=== PATIENT | female | born 1970 | race African-American/Black ===

== ENCOUNTER 2020-06-07 14:59 | Emergency (ER) | payer OTHER ==
[2020-06-07 15:21] VITALS: BMI 29.0
--- NOTE | 2020-06-07 15:38 | PDOC ---
History of Present Illness - General Chief Complaint: Wound Stated Complaint: CELLULITIS Time Seen by Provider: 06/07/20 15:38 - History of Present Illness Initial Comments: 06/07/20 16:22 50F with cerebral palsy, severe MR/DD, seizure d/o, LLE cellulitis p/w LLE swelling. A bobbin disker is at bedside but unable to provide much hx, other than it was noted by care team that LLE swelling had increased recently. She's chronically immobilized. The pt is unable to provide history. PMH: as in HPI SH: see below Meds: see med list Allergies: vancomycin PCP: ROS: unable to assess due to patient's condition PE GENERAL: Awake, alert, and not oriented ; no acute distress HEAD: No signs of trauma, normocephalic, atraumatic EYES: PERRLA, EOMI, sclera anicteric, conjunctiva clear ENT: Auricles normal inspection, hearing grossly normal, nares patent, moist mucosa, oropharynx clear without exudates. NECK: Normal ROM, supple, no LAD, JVD, or masses HEART: Regular rate and rhythm, normal S1/S2, no murmurs, rubs or gallops, peripheral pulses normal and equal bilaterally. LUNGS: No distress, clear to auscultation bilaterally ABDOMEN: Soft, nontender. No guarding, no rebound. No masses EXTREMITIES: LLE diffuse nonpitting edema from the knee down, possible erythema but poorly visualized, warmth; black necrotic lesion at lateral left 1st toe. NEUROLOGICAL: CNII-XII grossly intact. Normal speech, no focal sensorimotor deficits SKIN: Warm, Dry, normal turgor, no rashes or lesions noted Assessment and Plan Giorgio Flood, PGY1 Emergency Medicine Past History - Medical History Allergies/Adverse Reactions: Allergies Allergy/AdvReac Type Severity Reaction Status Date / Time vancomycin Allergy Verified 06/07/20 15:21 Home Medications: Ambulatory Orders Citalopram Hydrobromide [Citalopram HBr] 20 mg PO HS 09/19/19 Clobazam 30 mg PO HS 09/19/19 Docusate Sodium [Docusate 100 mg] 300 mg PO DAILY 09/19/19 Folic Acid 1 mg PO DAILY 09/19/19 Lamotrigine [Lamictal] 200 mg PO BID 09/19/19 Multivit-Minerals [Certavite-Antioxidant Liquid] 9 mg PO DAILY 09/19/19 Quetiapine Fumarate [Seroquel -] 200 mg PO HS 09/19/19 Spironolactone 50 mg PO DAILY 09/19/19 Topiramate [Topamax] 200 mg PO BID 09/19/19 levETIRAcetam [Keppra -] 1,000 mg PO BID 09/19/19 Furosemide 40 mg PO DAILY 06/07/20 Penicillin V Potassium [Pen Vee K -] 500 mg PO QID 06/07/20 Spironolactone 25 mg PO HS 06/07/20 CVA: Yes (2006) COPD: No Seizures: Yes - Reproductive History Is Patient Now?: No - Psycho-Social/Smoking History Smoking History: Unknown if ever smoked - Substance Abuse Hx (Audit-C & DAST Scrn) In the last yr the pt used illegal drug/Rx for NonMed reason: No Score: Yes response is considered Positive: 0 Screen Result (Positive result requires Nsg. DAST-10): Negative *Physical Exam - Vital Signs Last Vital Signs Temp Pulse Resp BP Pulse Ox 98.5 F 94 H 16 150/79 100 06/07/20 15:19 06/07/20 15:19 06/07/20 15:19 06/07/20 15:19 06/07/20 15:19 ED Treatment Course - LABORATORY CBC & Chemistry Diagram: 06/07/20 16:47 06/07/20 16:47 Medical Decision Making - Medical Decision Making 06/07/20 16:32 50F with cerebral palsy, severe MR/DD, seizure d/o, LLE cellulitis p/w LLE swelling, nonpitting. On exam, left LE was more swollen and warm than the right LE. DDx: LLE cellulitis vs necrotizing fasciitis, DVT, compartment syndrome. 06/07/20 18:29 Labs notable for elevated CRP, CMP and CBC wnl. 06/07/20 18:52 Pending LE doppler US. Signed out to night team. Discharge - Discharge Information Problems reviewed: Yes Clinical Impression/Diagnosis: Left leg swelling - Follow up/Referral - Patient Discharge Instructions - Post Discharge Activity
--- NOTE | 2020-06-07 17:12 | PDOC ---
Attending Attestation - Resident Resident Name: Giorgio Flood - ED Attending Attestation I have performed the following: I have examined & evaluated the patient, The case was reviewed & discussed with the resident, I agree w/resident's findings & plan, Exceptions are as noted - HPI HPI: 06/07/20 50 yo female BIBA from [facility] for evaluation of LLE swelling . She has no fever. Reviewing the pt's chart she has been on po antibiotics since May 23. PMH Significant for CP, severe MR, CVA 8007, seizure disorder, left lower extremity cellulitis, left ankle fracture 1999, hydrocephalus and organic brain syndrome 06/07/20 17:14 06/07/20 17:17 06/07/20 17:19 - Physicial Exam PE: 06/07/20 17:19 50 yo female resting on gurney on no distress ,sent for evaluation of LLE head ncat lungs no wheezing,no crackles cvs [id number] abdomen nontender extremities mild diffuse edema but the LLE is more swollen that the right leg,there is a mild erythema skin On the lateral surface of her left big toe there is a 1 cm black lesion with very discrete borders ,no erythema, nontender neuro nonverbal at baseline, chronic left sided weakness 06/07/20 17:31 - Medical Decision Making 06/07/20 19:54 Duplex Doppler NEGATIVE for dvt in left leg labs reviewed 06/07/20 20:25 pt has no leukocytosis and no fever d/c back to [place] Discharge - Discharge Information Problems reviewed: Yes Clinical Impression/Diagnosis: Left leg swelling Condition: Stable Disposition: [facility] FAC[facility] - Follow up/Referral - Patient Discharge Instructions Additional Instructions: Follow up with Betsy's primary care doctor in the next 3 days. Continue home medications as prescribed. Return to the Emergency Department if Betsy experiences new or worsening s ymptoms. - Post Discharge Activity
[2020-06-07 17:52] LABS: BASO % 0.5 % (0-2.0); EOS % 3.2 % (0-4.5); HEMATOCRIT 40.9 % (32.4-45.2); HEMOGLOBIN 13.2 GM/dL (10.7-15.3); LYMPH % 24.9 % (8-40); MCH 27.4 pg (25.7-33.7); MCHC 32.2 g/dl (32.0-36.0); MEAN CELL VOLUME 85.2 fl (80-96); MONO % 14.2 % (3.8-10.2); NEUT % 57.2 % (42.8-82.8); PLATELET COUNT 196 K/MM3 (134-434); RDW 14.2 % (11.6-15.6); WHITE BLOOD COUNT 6.2 K/mm3 (4.0-10.0)
[2020-06-07 18:03] LABS: ALBUMIN 3.5 g/dl (3.4-5.0); BILIRUBIN,TOTAL 0.1 mg/dL (0.2-1); BLOOD UREA NITROGEN 19.8 mg/dL (7-18); CALCIUM 9.4 mg/dL (8.5-10.1); CREATININE 1.2 mg/dL (0.55-1.3); POTASSIUM 3.9 mmol/L (3.5-5.1); TOT PROT 8.7 g/dl (6.4-8.2)
[2020-06-07 19:15] LABS: INR 1.06 (0.83-1.09); PROTHROMBIN TIME (PATIENT) 12.5 SEC (9.7-13.0)
[2020-06-07 19:18] LABS: ACTIVATED PTT 29.3 SECONDS (25.2-36.5)
--- NOTE | 2020-06-07 20:05 | PDOC ---
*Physical Exam - Vital Signs Last Vital Signs Temp Pulse Resp BP Pulse Ox 98.5 F 94 H 16 150/79 100 06/07/20 15:19 06/07/20 15:19 06/07/20 15:19 06/07/20 15:19 06/07/20 15:19 ED Treatment Course - LABORATORY CBC & Chemistry Diagram: 06/07/20 16:47 06/07/20 16:47 - ADDITIONAL ORDERS Additional order review: Laboratory Results 06/07/20 06/07/20 06/07/20 18:09 16:47 16:47 PT with INR 12.50 INR 1.06 PTT (Actin FS) 29.3 Sodium 143 Potassium 3.9 Chloride 111 H Carbon Dioxide 25 Anion Gap 7 L BUN 19.8 H Creatinine 1.2 Est GFR (CKD-EPI)AfAm 61.03 Est GFR (CKD-EPI)NonAf 52.65 Random Glucose 119 H Lactic Acid 1.0 Calcium 9.4 Total Bilirubin 0.1 L AST 11 L ALT 24 Alkaline Phosphatase 93 Creatine Kinase 94 C-Reactive Protein 3.2 H Total Protein 8.7 H Albumin 3.5 06/07/20 16:47 RBC 4.80 MCV 85.2 MCHC 32.2 RDW 14.2 MPV 8.0 Neutrophils % 57.2 Lymphocytes % 24.9 Monocytes % 14.2 H Eosinophils % 3.2 Basophils % 0.5 Medical Decision Making - Medical Decision Making 06/07/20 20:05 sign out from Day team US report w/o DVT Afebrile; labs reviewed w/o elevation of WBC Message left for Dr. Cedeno (PCP) to callback Plan to discharge back to [place] 06/07/20 20:25 2nd call placed to Dr. Cedeno, no answer 06/07/20 20:54 3rd call placed to Dr. Cedeno with no answer Patient has been medically cleared to return to [facility] to [place] Discharge - Discharge Information Problems reviewed: Yes Clinical Impression/Diagnosis: Left leg swelling Condition: Stable Disposition: SNF FACILITY - Admission No - Follow up/Referral - Patient Discharge Instructions Additional Instructions: Follow up with Betsy's primary care doctor in the next 3 days. Continue home medications as prescribed. Return to the Emergency Department if Betsy experiences new or worsening sym ptoms. - Post Discharge Activity
[2020-06-07 23:25] VITALS: BP 143/68; PULSE 90; TEMP 98.2
== END 2020-06-07 22:07 ==
LOC: JER 14:59
DX: L03.116 Cellulitis of left lower limb (principal)
CPT/HCPCS: 36415; 80053; 82550; 83605; 85025; 85610; 85730; 86140; 93971-TC; 99284-25

== ENCOUNTER 2023-12-15 13:40 | Inpatient (IN) | payer OTHER ==
[2023-12-15 15:39] LABS: VENOUS BASE EXCESS -4.8 mmol/L (-2-2); VENOUS O2 SATURATION 78.3 % (70-80); VENOUS PCO2 42.5 mmHg (38-52); VENOUS PH 7.315 (7.310-7.410)
[2023-12-15 15:41] LABS: BASO % 0.2 % (0-2.0); EOS % 0.1 % (0-4.5); HEMATOCRIT 39.5 % (32.4-45.2); HEMOGLOBIN 12.6 GM/dL (10.7-15.3); LYMPH % 4.3 % (8-40); MCH 26.5 pg (25.7-33.7); MCHC 31.9 g/dl (32.0-36.0); MEAN CELL VOLUME 83.2 fl (80-96); MEAN PLT VOLUME 6.9 fl (7.5-11.1); MONO % 7.7 % (3.8-10.2); NEUT % 87.7 % (42.8-82.8); PLATELET COUNT 171 10^3/uL (134-434); RBC 4.75 M/mm3 (3.60-5.2); RDW 13.6 % (11.6-15.6)
[2023-12-15 15:50] LABS: INR 1.18 (0.83-1.09); PROTHROMBIN TIME (PATIENT) 13.7 SEC (9.7-13.0)
[2023-12-15 15:53] LABS: ACTIVATED PTT 29.9 SECONDS (25.2-36.5)
[2023-12-15 16:00] LABS: POTASSIUM 3.6 mmol/L (3.5-5.1)
[2023-12-15 16:02] LABS: ALBUMIN 3.1 g/dl (3.4-5.0); BLOOD UREA NITROGEN 20.5 mg/dL (7-18); CALCIUM 8.8 mg/dL (8.5-10.1)
[2023-12-15 16:06] LABS: CREATININE 1.5 mg/dL (0.55-1.3)
[2023-12-15 16:07] LABS: BILIRUBIN,TOTAL 0.2 mg/dL (0.2-1); TOT PROT 7.2 g/dl (6.4-8.2)
[2023-12-15] MEDS ORDERED: ACETAMINOPHEN INJECTION 100 ML IVPB ONE (16:20)
[2023-12-15 16:23] LABS: EPI CELLS >36 /uL (0-25.1); HYALINE CASTS 1 /uL (0-3.1); PH,URINE 7.5 (5.0-8.0); URINE APPEARANCE CLOUDY; URINE BACTERIA >9,000 /uL (0-1359); URINE BILIRUBIN NEGATIVE (NEGATIVE); URINE COLOR YELLOW; URINE GLUCOSE (UA) NEGATIVE (NEGATIVE); URINE KETONE TRACE (NEGATIVE); URINE LEUK ESTERASE 3+ (NEGATIVE); URINE NITRITE POSITIVE (NEGATIVE); URINE PROTEIN TRACE (NEGATIVE); URINE RBC 325 /uL (0-23.9); URINE WBC 1973 /uL (0-25.8)
[2023-12-15] MEDS: ACETAMINOPHEN 1000 MG/100 ML BAG IVPB ONE (16:29)
[2023-12-15] MEDS: LACTATED RINGERS SOLUTION 1000 ML INFUS.BAG IV ONE (16:29)
[2023-12-15] MEDS ORDERED: CEFTRIAXONE 1 GM/50 ML BAG ONE (17:36)
[2023-12-15] MEDS: LACTATED RINGERS SOLUTION 1,000 ML/1,000 ML INFUS.BAG IV SCH (17:38)
[2023-12-15] MEDS: CEFTRIAXONE 1 GM in DEXTROSE 5%-WATER - 50 ML IVPB ONE (17:39)
[2023-12-15] MEDS ORDERED: cloBAZam 10 MG TABLET ONE (20:19)
[2023-12-15] MEDS ORDERED: TOPIRAMATE 100 MG TABLET ONE ×2 (20:19→20:23)
[2023-12-15] MEDS ORDERED: levETIRAcetam 500 MG TABLET (FP) PO ONE (20:19)
[2023-12-15] MEDS ORDERED: lamoTRIgine 100 MG TABLET ONE (20:20)
[2023-12-15] MEDS ORDERED: ATORVASTATIN CA 10 MG TABLET (FP) ONE (20:20)
[2023-12-15] MEDS ORDERED: SPIRONOLACTONE 25 MG TABLET ONE (20:21)
[2023-12-15] MEDS ORDERED: HEPARIN NA (PORCINE) 5,000 UNITS/ML 1ML VIAL ONE (20:21)
[2023-12-15] MEDS ORDERED: CITALOPRAM HYDROBROMIDE 10 MG TABLET ONE (20:21)
[2023-12-15] MEDS: SPIRONOLACTONE 25 MG TABLET PO SCH (21:45)
[2023-12-15] MEDS: HEPARIN NA (PORCINE) 5,000 UNITS/ML 1ML VIAL SQ SCH (21:45)
[2023-12-15] MEDS: levETIRAcetam 500 MG TABLET (FP) PO SCH (21:45)
[2023-12-15] MEDS: ATORVASTATIN CA 10 MG TABLET (FP) PO SCH (21:45)
[2023-12-15] MEDS: cloBAZam 10 MG TABLET PO SCH (21:45)
[2023-12-15] MEDS: CITALOPRAM HYDROBROMIDE 20 MG TABLET PO SCH (21:45)
[2023-12-15] MEDS: TOPIRAMATE 100 MG TABLET PO SCH (21:46)
[2023-12-15] MEDS: CEFTRIAXONE 1,000 MG in DEXTROSE 5%-WATER - 50 ML IVPB ONE (21:46)
[2023-12-15] MEDS ORDERED: PATIENT'S OWN MEDICATION (NON-FORMULARY) (Topiramate [Topamax] 50 MG Tablet) PO SCH (22:00)
[2023-12-16 07:55] LABS: BASO % 0.2 % (0-2.0); HEMATOCRIT 34.9 % (32.4-45.2); HEMOGLOBIN 11.2 GM/dL (10.7-15.3); LYMPH % 4.7 % (8-40); MCH 26.7 pg (25.7-33.7); MEAN CELL VOLUME 83.6 fl (80-96); MEAN PLT VOLUME 7.7 fl (7.5-11.1); MONO % 8.8 % (3.8-10.2); NEUT % 86.3 % (42.8-82.8); PLATELET COUNT 135 10^3/uL (134-434); RBC 4.18 M/mm3 (3.60-5.2); RDW 13.7 % (11.6-15.6); WHITE BLOOD COUNT 19.5 K/mm3 (4.0-10.0)
[2023-12-16 08:17] LABS: POTASSIUM 3.2 mmol/L (3.5-5.1)
[2023-12-16 08:24] LABS: CALCIUM 8.4 mg/dL (8.5-10.1)
[2023-12-16 08:28] LABS: CREATININE 1.7 mg/dL (0.55-1.3)
[2023-12-16] MEDS ORDERED: ACETAMINOPHEN 500 MG TABLET (FP) ONE (09:07)
[2023-12-16] MEDS: ACETAMINOPHEN 500 MG TABLET (FP) PO PRN (09:10)
[2023-12-16] MEDS ORDERED: MULTIVIT-MINERALS ORAL LIQUID PO SCH (10:00)
[2023-12-16] MEDS: FOLIC ACID 1 MG TABLET (FP) PO SCH (10:17)
[2023-12-16] MEDS: MULTIVITAMINS (DAILY MVI) TABLET (FP) PO SCH (10:17)
[2023-12-16] MEDS: DOCUSATE SODIUM 100 MG CAPSULE (FP) PO SCH (10:18)
[2023-12-16] MEDS: LORATADINE 10 MG TABLET PO SCH (10:18)
[2023-12-16] MEDS ORDERED: PIPERACILLIN/TAZOB 3.375 GM 3.375 GM in DEXTROSE 5%-WATER - 50 ML IVPB SCH (10:30)
[2023-12-16] MEDS: POTASSIUM CHLORIDE TABS 20 MEQ TABLET.ER (FP) PO ONE (11:19)
[2023-12-16] MEDS: PIPERACILLIN/TAZOB 4.5 GM 4.5 GM in DEXTROSE 5%-WATER 100 ML IVPB ONE (11:20)
[2023-12-16] MEDS: CEFTRIAXONE 1 GM in DEXTROSE 5%-WATER - 50 ML IVPB SCH (11:22)
[2023-12-16] MEDS ORDERED: KCL 10 MEQ IVPB 10 MEQ/100 ML INFUS.BAG IVPB SCH (13:15)
[2023-12-16] MEDS: POTASSIUM CHLORIDE ORAL LIQUID 20 MEQ/15 ML PO SCH (13:53)
[2023-12-16] MEDS: PIPERACILLIN/TAZOB 3.375 GM 3.375 GM in DEXTROSE 5%-WATER - 50 ML IVPB SCH (16:10)
[2023-12-16] MEDS: lamoTRIgine 100 MG TABLET PO SCH (23:08)
[2023-12-17] MEDS: ACETAMINOPHEN 1000 MG/100 ML BAG IVPB PRN (06:52)
[2023-12-17 09:30] LABS: HEMATOCRIT 35.6 % (32.4-45.2); MCHC 30.9 g/dl (32.0-36.0); MEAN PLT VOLUME 7.5 fl (7.5-11.1); PLATELET COUNT 131 10^3/uL (134-434); RBC 4.24 M/mm3 (3.60-5.2); RDW 13.6 % (11.6-15.6); WHITE BLOOD COUNT 15.3 K/mm3 (4.0-10.0)
[2023-12-17 09:56] LABS: POTASSIUM 4.1 mmol/L (3.5-5.1)
[2023-12-17 09:59] LABS: BLOOD UREA NITROGEN 20.4 mg/dL (7-18); CALCIUM 9.4 mg/dL (8.5-10.1)
[2023-12-17 10:01] LABS: ALBUMIN 2.6 g/dl (3.4-5.0)
[2023-12-17 10:04] LABS: BILIRUBIN,TOTAL 0.5 mg/dL (0.2-1); CREATININE 1.6 mg/dL (0.55-1.3); TOT PROT 6.6 g/dl (6.4-8.2)
[2023-12-17 15:47] VITALS: BMI 35.9
[2023-12-17] MEDS: PIPERACILLIN/TAZOB 3.375 GM 3.375 GM in DEXTROSE 5%-WATER - 50 ML IVPB SCH (17:23)
[2023-12-17] MEDS: cloBAZam 10 MG TABLET PO SCH (23:08)
[2023-12-17] MEDS: SPIRONOLACTONE 25 MG TABLET PO SCH (23:09)
[2023-12-18] MEDS: SPIRONOLACTONE 25 MG TABLET PO SCH (07:37)
[2023-12-18] MEDS ORDERED: PIPERACILLIN/TAZOBACTAM 3.375 GM VIAL IVPB ONE (16:53)
[2023-12-18] MEDS: ACETAMINOPHEN 1000 MG/100 ML BAG IVPB PRN (18:05)
[2023-12-19 09:10] LABS: HEMATOCRIT 35.7 % (32.4-45.2); HEMOGLOBIN 11.1 GM/dL (10.7-15.3); MCH 26.1 pg (25.7-33.7); MCHC 31.2 g/dl (32.0-36.0); MEAN CELL VOLUME 83.6 fl (80-96); MEAN PLT VOLUME 7.3 fl (7.5-11.1); PLATELET COUNT 129 10^3/uL (134-434); RBC 4.27 M/mm3 (3.60-5.2); RDW 14.1 % (11.6-15.6); WHITE BLOOD COUNT 9.1 K/mm3 (4.0-10.0)
[2023-12-19 09:31] LABS: POTASSIUM 3.8 mmol/L (3.5-5.1)
[2023-12-19 09:35] LABS: CALCIUM 8.8 mg/dL (8.5-10.1)
[2023-12-19 09:36] LABS: ALBUMIN 2.3 g/dl (3.4-5.0); BLOOD UREA NITROGEN 18.2 mg/dL (7-18)
[2023-12-19 09:39] LABS: CREATININE 1.5 mg/dL (0.55-1.3)
[2023-12-19 09:41] LABS: BILIRUBIN,TOTAL 0.4 mg/dL (0.2-1); TOT PROT 6.7 g/dl (6.4-8.2)
[2023-12-19] MEDS ORDERED: PIPERACILLIN/TAZOBACTAM 3.375 GM VIAL IVPB ONE (10:37)
[2023-12-19] MEDS ORDERED: CEFTRIAXONE 1 GM in DEXTROSE 5%-WATER - 50 ML IVPB SCH (11:15)
[2023-12-19] MEDS: SODIUM CHLORIDE 1,000 ML IV SCH (13:57)
[2023-12-19] MEDS: ACETAMINOPHEN 1000 MG/100 ML BAG IVPB ONE (19:56)
[2023-12-20 10:00] LABS: HEMATOCRIT 37.2 % (32.4-45.2); MCH 26.8 pg (25.7-33.7); MCHC 32.3 g/dl (32.0-36.0); MEAN PLT VOLUME 7.9 fl (7.5-11.1); PLATELET COUNT 153 10^3/uL (134-434); RBC 4.49 M/mm3 (3.60-5.2); RDW 14.1 % (11.6-15.6); WHITE BLOOD COUNT 10.4 K/mm3 (4.0-10.0)
[2023-12-20 10:16] LABS: POTASSIUM 3.8 mmol/L (3.5-5.1)
[2023-12-20 10:52] LABS: ALBUMIN 2.6 g/dl (3.4-5.0); CALCIUM 9.2 mg/dL (8.5-10.1); CREATININE 1.5 mg/dL (0.55-1.3)
[2023-12-20 10:53] LABS: BLOOD UREA NITROGEN 17.5 mg/dL (7-18)
[2023-12-20 10:54] LABS: BILIRUBIN,TOTAL 0.2 mg/dL (0.2-1); TOT PROT 7.1 g/dl (6.4-8.2)
[2023-12-20] MEDS: CEFTRIAXONE 1 GM in DEXTROSE 5%-WATER - 50 ML IVPB ONE (12:43)
[2023-12-20] MEDS ORDERED: CEFTRIAXONE 1 GM in DEXTROSE 5%-WATER - 50 ML IVPB SCH (16:00)
[2023-12-21 10:05] LABS: HEMATOCRIT 38.6 % (32.4-45.2); HEMOGLOBIN 12.2 GM/dL (10.7-15.3); MCH 26.2 pg (25.7-33.7); MCHC 31.6 g/dl (32.0-36.0); MEAN CELL VOLUME 83.1 fl (80-96); MEAN PLT VOLUME 7.4 fl (7.5-11.1); PLATELET COUNT 168 10^3/uL (134-434); RBC 4.65 M/mm3 (3.60-5.2); RDW 13.9 % (11.6-15.6)
[2023-12-21 10:23] LABS: POTASSIUM 4.1 mmol/L (3.5-5.1)
[2023-12-21 10:26] LABS: CALCIUM 9.1 mg/dL (8.5-10.1)
[2023-12-21 10:27] LABS: ALBUMIN 2.6 g/dl (3.4-5.0); BLOOD UREA NITROGEN 16.3 mg/dL (7-18)
[2023-12-21 10:30] LABS: CREATININE 1.4 mg/dL (0.55-1.3)
[2023-12-21 10:31] LABS: BILIRUBIN,TOTAL 0.4 mg/dL (0.2-1)
[2023-12-21 10:32] LABS: TOT PROT 7.6 g/dl (6.4-8.2)
[2023-12-21] MEDS: CEFTRIAXONE 1 GM in DEXTROSE 5%-WATER - 50 ML IVPB SCH (12:50)
[2023-12-22] MEDS ORDERED: PIPERACILLIN/TAZOB 3.375 GM 3.375 GM in DEXTROSE 5%-WATER - 50 ML IVPB SCH (19:30)
[2023-12-22 20:03] LABS: HEMATOCRIT 42.1 % (32.4-45.2); HEMOGLOBIN 13.1 GM/dL (10.7-15.3); MCH 25.7 pg (25.7-33.7); MEAN CELL VOLUME 82.7 fl (80-96); MEAN PLT VOLUME 7.6 fl (7.5-11.1); PLATELET COUNT 231 10^3/uL (134-434); RBC 5.09 M/mm3 (3.60-5.2); RDW 13.5 % (11.6-15.6)
[2023-12-22 20:04] LABS: ADD RBC MORPHOLOGY YES
[2023-12-22 20:53] LABS: ALBUMIN 2.9 g/dl (3.4-5.0); BILIRUBIN,TOTAL 0.2 mg/dL (0.2-1); BLOOD UREA NITROGEN 19.9 mg/dL (7-18); CALCIUM 9.3 mg/dL (8.5-10.1); CREATININE 1.6 mg/dL (0.55-1.3); POTASSIUM 4.4 mmol/L (3.5-5.1); TOT PROT 8.4 g/dl (6.4-8.2)
[2023-12-22] MEDS: PIPERACILLIN/TAZOB 3.375 GM 3.375 GM in DEXTROSE 5%-WATER - 50 ML IVPB SCH ×2 (20:59→21:11)
[2023-12-22 21:30] LABS: ANISOCYTOSIS 0; MACROCYTOSIS 0
[2023-12-22 21:34] LABS: WHITE BLOOD COUNT 17.2 K/mm3 (4.0-10.0)
[2023-12-22] MEDS: ACETAMINOPHEN 325 MG TABLET (FP) PO PRN (22:00)
[2023-12-23 08:33] LABS: BASO % 0.6 % (0-2.0); EOS % 1.4 % (0-4.5); HEMATOCRIT 36.6 % (32.4-45.2); HEMOGLOBIN 11.4 GM/dL (10.7-15.3); LYMPH % 11.4 % (8-40); MCH 25.8 pg (25.7-33.7); MCHC 31.2 g/dl (32.0-36.0); MEAN CELL VOLUME 82.6 fl (80-96); MEAN PLT VOLUME 7.3 fl (7.5-11.1); MONO % 7.2 % (3.8-10.2); NEUT % 79.4 % (42.8-82.8); PLATELET COUNT 244 10^3/uL (134-434); RBC 4.44 M/mm3 (3.60-5.2); RDW 13.5 % (11.6-15.6)
[2023-12-23 08:41] LABS: POTASSIUM 3.9 mmol/L (3.5-5.1)
[2023-12-23 08:44] LABS: CALCIUM 9.3 mg/dL (8.5-10.1)
[2023-12-23 08:45] LABS: BLOOD UREA NITROGEN 20.1 mg/dL (7-18)
[2023-12-23 08:46] LABS: CREATININE 1.6 mg/dL (0.55-1.3)
[2023-12-24 09:02] LABS: HEMATOCRIT 35.4 % (32.4-45.2); MCH 25.9 pg (25.7-33.7); MCHC 31.2 g/dl (32.0-36.0); MEAN PLT VOLUME 7.1 fl (7.5-11.1); PLATELET COUNT 249 10^3/uL (134-434); RBC 4.26 M/mm3 (3.60-5.2); RDW 13.7 % (11.6-15.6); WHITE BLOOD COUNT 14.6 K/mm3 (4.0-10.0)
[2023-12-24 09:37] LABS: BLOOD UREA NITROGEN 19.4 mg/dL (7-18); CALCIUM 9.1 mg/dL (8.5-10.1); CREATININE 1.3 mg/dL (0.55-1.3)
[2023-12-24 10:20] LABS: ANISOCYTOSIS 0; HELMET CELLS 0; HOWELL-JOLLY BODIES 0; MACROCYTOSIS 0; OVALOCYTE 0; ROULEAU 0; SICKELED CELLS 0; TARGET CELLS 0; TEAR DROP CELLS 0; TOXIC GRANULATION 0
[2023-12-24] MEDS: CEFTRIAXONE 1 GM in DEXTROSE 5%-WATER - 50 ML IVPB SCH (14:54)
[2023-12-25 10:03] LABS: HEMATOCRIT 35.1 % (32.4-45.2); HEMOGLOBIN 11.1 GM/dL (10.7-15.3); MCH 26.3 pg (25.7-33.7); MCHC 31.7 g/dl (32.0-36.0); MEAN CELL VOLUME 82.9 fl (80-96); MEAN PLT VOLUME 7.2 fl (7.5-11.1); PLATELET COUNT 300 10^3/uL (134-434); RBC 4.24 M/mm3 (3.60-5.2); RDW 13.9 % (11.6-15.6); WHITE BLOOD COUNT 11.3 K/mm3 (4.0-10.0)
[2023-12-25 10:05] LABS: POTASSIUM 4.1 mmol/L (3.5-5.1)
[2023-12-25 10:07] LABS: BLOOD UREA NITROGEN 17.7 mg/dL (7-18); CALCIUM 9.5 mg/dL (8.5-10.1)
[2023-12-26 08:47] LABS: HEMATOCRIT 35.5 % (32.4-45.2); HEMOGLOBIN 11.6 GM/dL (10.7-15.3); MCH 27.1 pg (25.7-33.7); MCHC 32.6 g/dl (32.0-36.0); MEAN CELL VOLUME 83.2 fl (80-96); MEAN PLT VOLUME 6.9 fl (7.5-11.1); PLATELET COUNT 330 10^3/uL (134-434); RBC 4.27 M/mm3 (3.60-5.2); WHITE BLOOD COUNT 9.9 K/mm3 (4.0-10.0)
[2023-12-26] MEDS: CEFUROXIME AXETIL 500 MG TABLET PO SCH ×2 (14:47→22:09)
[2023-12-26] MEDS ORDERED: PROPOFOL 20 ML ONE (17:12)
[2023-12-26] MEDS ORDERED: FENTANYL CITRATE/PF 50 MCG/ML VIAL ONE (17:12)
[2023-12-26] MEDS ORDERED: ACETAMINOPHEN INJECTION 100 ML IVPB ONE (17:12)
[2023-12-26 17:13] LABS: CHLORIDE 111 mmol/L (98-107); POTASSIUM 4.1 mmol/L (3.5-5.1); SODIUM 143 mmol/L (136-145)
[2023-12-26] MEDS ORDERED: MIDAZOLAM HCL 2 MG/2 ML SINGLE DOSE VIAL ONE (17:13)
[2023-12-26 17:15] LABS: CALCIUM 9.7 mg/dL (8.5-10.1)
[2023-12-26 17:16] LABS: ALBUMIN 2.9 g/dl (3.4-5.0); ANION GAP 5 mmol/L (4-13); BLOOD UREA NITROGEN 18.5 mg/dL (7-18); CO2 26 mmol/L (21-32); GLUCOSE,RANDOM 91 mg/dL (74-106)
[2023-12-26 17:19] LABS: SGOT/AST 16 U/L (15-37); SGPT/ALT 29 U/L (13-61)
[2023-12-26 17:20] LABS: TOT PROT 8.9 g/dl (6.4-8.2)
[2023-12-26 17:21] LABS: BILIRUBIN,TOTAL 0.2 mg/dL (0.2-1)
[2023-12-26] MEDS ORDERED: DEXAMETHASONE SOD PHOSPHATE 4 MG/1 ML VIAL ONE (17:21)
[2023-12-26] MEDS ORDERED: ONDANSETRON 4 MG/2 ML VIAL ONE (17:21)
[2023-12-26 17:22] LABS: ALK PHOS 72 U/L (45-117)
[2023-12-26] MEDS: ceFAZolin SODIUM 1 GM VIAL IVPB ONE (17:30)
[2023-12-26] MEDS ORDERED: KETOROLAC TROMETHAMINE 30 MG/1 ML VIAL ONE (17:31)
[2023-12-26] MEDS ORDERED: ACETAMINOPHEN 325 MG TABLET (FP) PO PRN (17:54)
[2023-12-26] MEDS: LACTATED RINGERS SOLUTION 1,000 ML IV SCH (19:35)
[2023-12-26] MEDS: CITALOPRAM HYDROBROMIDE 20 MG TABLET PO SCH (22:09)
[2023-12-26] MEDS: levETIRAcetam 500 MG TABLET (FP) PO SCH (22:09)
[2023-12-26] MEDS: lamoTRIgine 100 MG TABLET PO SCH (22:09)
[2023-12-26] MEDS: ATORVASTATIN CA 10 MG TABLET (FP) PO SCH (22:10)
[2023-12-26] MEDS: TOPIRAMATE 100 MG TABLET PO SCH (22:10)
[2023-12-26] MEDS: cloBAZam 10 MG TABLET PO SCH (22:10)
[2023-12-26] MEDS: SPIRONOLACTONE 25 MG TABLET PO SCH (22:12)
[2023-12-27 03:08] VITALS: RESP 20
[2023-12-27 07:07] VITALS: PULSE 82
[2023-12-27] MEDS: SPIRONOLACTONE 25 MG TABLET PO SCH (07:40)
[2023-12-27] MEDS: DOCUSATE SODIUM 100 MG CAPSULE (FP) PO SCH (09:41)
[2023-12-27] MEDS: LORATADINE 10 MG TABLET PO SCH (09:42)
[2023-12-27] MEDS: FOLIC ACID 1 MG TABLET (FP) PO SCH (09:42)
[2023-12-27] MEDS: MULTIVITAMINS (DAILY MVI) TABLET (FP) PO SCH (10:48)
[2023-12-27 12:01] VITALS: BP 107/54; TEMP 98.9
== END 2023-12-27 15:27 | DRG 720 ==
LOC: JER 13:40 → JERBED 17:11 → OBSVTOIN 17:20 → J5S 12-16 09:22
PROVIDERS: ADMIT Internal Medicine
PROC: 0T768DZ Dilation of Right Ureter with Intraluminal Device, Via Natural or Artificial Opening Endoscopic (ICD-10-PCS; principal; 2023-12-26 17:00)
DX: A41.9 Sepsis, unspecified organism (principal); G93.41 Metabolic encephalopathy; J18.9 Pneumonia, unspecified organism; N17.9 Acute kidney failure, unspecified; N13.6 Pyonephrosis; B96.20 Unspecified Escherichia coli [E. coli] as the cause of diseases classified elsewhere; E66.9 Obesity, unspecified; G40.909 Epilepsy, unspecified, not intractable, without status epilepticus; G80.9 Cerebral palsy, unspecified; Q03.9 Congenital hydrocephalus, unspecified; F72 Severe intellectual disabilities; Z68.35 Body mass index [BMI] 35.0-35.9, adult
CPT/HCPCS: 0241U-QW; 36415; 71045-TC-FY; 74176-TC; 76000-TC-FY; 76775-TC; 80048; 80053; 81003; 82803; 83605; 83735; 84484; 84702; 85025; 85027; 85610; 85730; 86850; 86900; 86901; 87040; 87086; 87186; 87635; 93005; 93010; 94760; 99285-25; C2617; G0378; J0131; J1644